=== PATIENT | male | born 1955 | race African-American/Black ===

== ENCOUNTER 2017-12-27 15:27 | Observation (INO) | payer OTHER ==
[~2017-12-27] VITALS: Ht 182.9 cm; Wt 80.0 kg
[~2017-12-27 15:27] MED LIST: AMOX500T PO; AUGM875T PO; LISI-363 PO; LORTA5 PO; NORV5TAB PO; PROT40TA PO; TRAM100T19 PO
[2017-12-27 15:33] VITALS: BP 145/85; PULSE 111; RESP 15; TEMP 97.7; O2SAT 97
[2017-12-27] MEDS ORDERED: LISI-519 PO (15:44)
[2017-12-27] MEDS ORDERED: SODIUM CHLORIDE 0.9% FLUSH 10 ML FLUSH IVF PRN (15:45)
[2017-12-27] MEDS ORDERED: SODIUM CHLORID 0.9% 500 ML INJ 500 ML IV ONE (15:45)
[2017-12-27] MEDS ORDERED: ALBU6.7H INH (15:48)
[2017-12-27] MEDS ORDERED: AMLO5TAB2 PO (15:48)
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
--- NOTE | 2017-12-27 16:13 | RADRPT ---
EXAM DATE/TIME: 12/27/2017 15:49 [place] COMPARISON: No previous studies available for comparison. INDICATIONS : Chest pain MEDICAL HISTORY : Hypertension. SURGICAL HISTORY : None. ENCOUNTER: Initial ACUITY: 1 day PAIN SCORE: 0/10 LOCATION: chest FINDINGS: PA and lateral views of the chest demonstrate the lungs to be symmetrically aerated without evidence of mass, infiltrate or effusion. The cardiomediastinal contours are unremarkable. Osseous structure s are intact. CONCLUSION: 1. No acute cardiopulmonary findings. Floyd Abel MD on December 27, 2017 at 16:10 Board Certified Radiologist. This report was verified electronically.
[2017-12-27 16:42] LABS: BASOPHIL # 0.1 TH/MM3 (0-0.2); BASOPHIL % 0.3 % (0.0-2.0); EOSINOPHIL # 0.1 TH/MM3 (0-0.4); EOSINOPHIL % 0.5 % (0.0-4.0); HEMATOCRIT 46.2 % (39.0-51.0); HEMOGLOBIN 15.4 GM/DL (13.0-17.0); LYMPHOCYTE # 7.5 TH/MM3 (1.0-4.8); MEAN CELL VOLUME 101.6 FL (80.0-100.0); MEAN CORPUSCULAR HGB CONC 33.4 % (32.0-36.0); MEAN PLATELET VOLUME 7.4 FL (7.0-11.0); MONO % 6.8 % (0.0-8.0); MONOCYTE # 1.2 TH/MM3 (0-0.9); NEUT % 50.4 % (16.0-70.0); PLATELET COUNT 391 TH/MM3 (150-450); RED BLOOD COUNT 4.55 MIL/MM3 (4.50-5.90); RED CELL DISTRIBUTION WIDTH 14.6 % (11.6-17.2); WHITE BLOOD COUNT 17.9 TH/MM3 (4.0-11.0)
[2017-12-27 16:54] LABS: PROTHROMBIN TIME - PATIENT 10.3 SEC (9.8-11.6)
[2017-12-27 17:06] LABS: ALBUMIN 3.9 GM/DL (3.4-5.0); AST (GOT) 32 U/L (15-37); BICARBONATE 19.9 MEQ/L (21.0-32.0); BLOOD UREA NITROGEN 20 MG/DL (7-18); CALCIUM 9.5 MG/DL (8.5-10.1); CHLORIDE 99 MEQ/L (98-107); CREATININE 1.56 MG/DL (0.60-1.30); GLOMERULAR FILTRATION RATE 55 ML/MIN (>89); GLUCOSE,RANDOM 148 MG/DL (74-106); MAGNESIUM 2.2 MG/DL (1.5-2.5); SODIUM (NA) 134 MEQ/L (136-145)
[2017-12-27 17:07] LABS: ALT (GPT) 52 U/L (12-78)
[2017-12-27 17:10] LABS: ALKALINE PHOSPHATASE 78 U/L (45-117); TOTAL BILIRUBIN ADULT 0.4 MG/DL (0.2-1.0); TOTAL PROTEIN 7.6 GM/DL (6.4-8.2); TROPONIN I LESS THAN 0.02 NG/ML (0.02-0.05)
[2017-12-27] MEDS ORDERED: SODIUM CHLOR 0.9% 1000 ML INJ 1,000 ML IV ONE ×2 (18:15)
[2017-12-27] MEDS ORDERED: NALOXONE HCL 0.4 MG/ML AMP IV PUSH ONE (18:15)
[2017-12-27 18:21] VITALS: BP 115/75; PULSE 74; RESP 12; O2SAT 96
[2017-12-27 18:21] LABS: LYMPHOCYTES 45 % (9-44); MONOCYTES 4 % (0-8); NEUTROPHIL # MANUAL DIFF 9.1 TH/MM3 (1.8-7.7); POLYS (SEG NEUTROPHILS) 50 % (16-70); PROMYELOCYTES 1 % (0-0)
[2017-12-27 18:22] LABS: HOWELL-JOLLY BODIES PRESENT (NONE SEEN)
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
[2017-12-27] MEDS ORDERED: SODIUM CHLORIDE 0.9% FLUSH 10 ML FLUSH IV FLUSH PRN (18:30)
[2017-12-27] MEDS ORDERED: ACETAMINOPHEN 325 MG TAB PO PRN (18:30)
[2017-12-27] MEDS ORDERED: RESP: ALBUTEROL 2.5 MG/IPRATROPIUM 0.5 MG NEB (PRN) NEB (18:30)
[2017-12-27] MEDS ORDERED: MAGNESIUM HYDROXIDE SUSP 30 ML CUP PO PRN (18:30)
[2017-12-27] MEDS ORDERED: NALOXONE HCL 0.4 MG/ML AMP IV PUSH PRN ×2 (18:30)
[2017-12-27] MEDS ORDERED: ONDANSETRON HCL 4 MG/2 ML VIAL IVP PRN (18:30)
[2017-12-27 19:42] VITALS: BP 129/80; PULSE 82; RESP 17; O2SAT 100
[2017-12-27 20:00] VITALS: O2SAT 100
[2017-12-27 21:29] VITALS: BP 129/79; PULSE 77; RESP 16; O2SAT 99
[2017-12-27] MEDS: SODIUM CHLORIDE 0.9% FLUSH 10 ML FLUSH IV FLUSH SCH (22:44)
[2017-12-28] VITALS (9 sets, daily range): BP systolic 110–164; BP diastolic 68–103; PULSE 68–96; RESP 16–18; TEMP 97.7–98.8; O2SAT 95–98
[2017-12-28 07:29] LABS: AUTOMATED NEUTROPHIL # 9.8 TH/MM3 (1.8-7.7); BASOPHIL % 0.3 % (0.0-2.0); EOSINOPHIL # 0.2 TH/MM3 (0-0.4); EOSINOPHIL % 1.2 % (0.0-4.0); HEMATOCRIT 40.4 % (39.0-51.0); HEMOGLOBIN 13.9 GM/DL (13.0-17.0); LYMPH % 28.7 % (9.0-44.0); LYMPHOCYTE # 4.5 TH/MM3 (1.0-4.8); MEAN CELL VOLUME 101.1 FL (80.0-100.0); MEAN CORPUSCULAR HEMOGLOBIN 34.8 PG (27.0-34.0); MEAN CORPUSCULAR HGB CONC 34.4 % (32.0-36.0); MEAN PLATELET VOLUME 7.2 FL (7.0-11.0); MONO % 6.9 % (0.0-8.0); MONOCYTE # 1.1 TH/MM3 (0-0.9); NEUT % 62.9 % (16.0-70.0); PLATELET COUNT 348 TH/MM3 (150-450); RED CELL DISTRIBUTION WIDTH 14.5 % (11.6-17.2); WHITE BLOOD COUNT 15.6 TH/MM3 (4.0-11.0)
[2017-12-28 08:16] LABS: BICARBONATE 30.4 MEQ/L (21.0-32.0); CREATININE 1.06 MG/DL (0.60-1.30)
[2017-12-28] MEDS: SODIUM CHLORIDE 0.9% FLUSH 10 ML FLUSH IV FLUSH SCH ×2 (09:06→21:00)
--- NOTE | 2017-12-28 10:25 | HHI.PR ---
Subjective Remarks Pt has NO new complaints. Pt is tolerating PO intake. Pt is requesting discharge to home. Objective Vitals Vital Signs Date Time Temp Pulse Resp B/P (MAP) Pulse Ox O2 Delivery O2 Flow Rate FiO2 12/28/17 09:10 68 18 129/73 (91) 97 Nasal Cannula 2.00 12/28/17 07:10 97.8 79 16 129/73 (91) 98 Nasal Cannula 2.00 12/28/17 07:10 79 18 98 Nasal Cannula 2.00 12/28/17 07:10 79 18 12/28/17 02:00 92 16 130/88 (102) 95 Nasal Cannula 2.00 12/28/17 01:00 72 16 129/78 (95) 98 Nasal Cannula 2.00 12/28/17 00:11 72 16 164/103 (123) 98 Room Air 12/27/17 21:29 77 16 129/79 (96) 99 Room Air 12/27/17 20:00 100 Nasal Cannula 2.00 12/27/17 19:42 82 17 129/80 (96) 100 Nasal Cannula 2.00 12/27/17 18:21 74 12 115/75 (88) 96 Nasal Cannula 3.00 12/27/17 15:33 97.7 111 15 145/85 (105) 97 12/28/17 12/28/17 12/29/17 15:00 23:00 07:00 Intake Total 300 ml Output Total 900 ml Balance -600 ml Intake Oral 300 ml Output Urine Total 900 ml # Voids 2 # Bowel Movements 0 Result Diagram: 12/28/17 0559 12/28/17 0559 Imaging Last Impressions Chest X-Ray 12/27/17 1539 Signed Impressions: Service Date/Time: Wednesday, December 27, 2017 15:49 - CONCLUSION: 1. No acute cardiopulmonary findings. Floyd Abel MD Objective Remarks GENERAL: This is a well-nourished, well-developed patient, in no apparent distress. CARDIOVASCULAR: Regular rate and rhythm without murmurs, gallops, or rubs. RESPIRATORY: Clear to auscultation. Breath sounds equal bilaterally. No wheezes , rales, or rhonchi. GASTROINTESTINAL: Abdomen soft, non-tender, nondistended. Normal active bowel sounds MUSCULOSKELETAL: Extremities without clubbing, cyanosis, or edema. NEURO: Alert & Oriented x4 to person, place, time, situation. Moves all ext x4 A/P Problem List: (1) Polysubstance abuse ICD Codes: F19.10 - Other psychoactive substance abuse, uncomplicated Status: Chronic Plan: - Pt brought to ER d/t drug overdose - Pt received IV narcan in the field with improvement. - In the field, there was c/o VT & pt received IV lidocaine bolus and then drip. ER physician disagreed and stopped IV lidocaine - Pt too lethargic for discharge to home. Observation admission requested by ER. - tele (12/28): NSR - Pt tolerating PO intake. - discharge to home - f/u with [facility] PCP in one week - f/u with [facility] in one week, RE: polysubstance abuse. (2) HTN (hypertension) ICD Codes: I10 - Essential (primary) hypertension Status: Chronic Plan: - hold home bp medications - keep bp log - f/u with PCP in one week to consider if pt needs to resume BP medications. Problem Qualifiers (1) HTN (hypertension): Qualified Codes: I10 - Essential (primary) hypertension Nolan Perez DO Dec 28, 2017 10:25
[2017-12-28] MEDS ORDERED: RESP: ALBUTEROL 2.5 MG/IPRATROPIUM 0.5 MG NEB (PRN) NEB (12:00)
[2017-12-28] MEDS: SODIUM CHLOR 0.9% 1000 ML INJ 1,000 ML IV SCH (12:11)
[2017-12-28] MEDS ORDERED: RESP: ALBUTEROL 2.5 MG/IPRATROPIUM 0.5 MG NEB (SCH) NEB ONE (13:00)
--- NOTE | 2017-12-28 19:13 | EKG ---
Date Performed: 12/28/2017 Time Performed: 08:31:42 PTAGE: 62 years EKG: Sinus rhythm NONSPECIFIC T-WAVE ABNORMALITY BORDERLINE ECG PREVIOUS TRACING : 12/27/2017 21.49 Since the previous tracing, no significant change noted DOCTOR: Devante Guevara Interpretating Date/Time 12/28/2017 19:12:24
--- NOTE | 2017-12-28 19:56 | EKG ---
Date Performed: 12/27/2017 Time Performed: 21:49:36 PTAGE: 62 years EKG: Sinus rhythm NORMAL ECG Since the PREVIOUS TRACING , no significant change noted DOCTOR: Devante Guevara Interpretating Date/Time 12/28/2017 19:54:19
--- NOTE | 2017-12-28 20:16 | EKG ---
Date Performed: 12/27/2017 Time Performed: 16:14:47 PTAGE: 62 years EKG: Sinus rhythm NORMAL ECG Since the PREVIOUS TRACING , a fib and RBBB no longer present DOCTOR: Devante Guevara Interpretating Date/Time 12/28/2017 20:15:18
--- NOTE | 2017-12-28 20:17 | EKG ---
Date Performed: 12/27/2017 Time Performed: 15:35:55 PTAGE: 62 years EKG: ATRIAL FIBRILLATION WITH RAPID VENTRICULAR RESPONSE MARKED LEFT AXIS DEVIATION RIGHT BUNDLE BRANCH BLOCK SEPTAL MYOCARDIAL INFARCTION ABNORMAL ECG NO PREVIOUS TRACING DOCTOR: Devante Guevara Interpretating Date/Time 12/28/2017 20:17:30
[2017-12-29 00:10] VITALS: BP 111/72; PULSE 83; RESP 18; TEMP 99; O2SAT 94
[2017-12-29 03:42] VITALS: BP 124/79; PULSE 78; RESP 18; TEMP 98.3; O2SAT 94
[2017-12-29] MEDS: SODIUM CHLOR 0.9% 1000 ML INJ 1,000 ML IV SCH (05:56)
[2017-12-29 07:40] VITALS: PULSE 70
[2017-12-29 08:18] VITALS: BP 130/74; PULSE 66; RESP 18; TEMP 98; O2SAT 96
[2017-12-29] MEDS: SODIUM CHLORIDE 0.9% FLUSH 10 ML FLUSH IV FLUSH SCH (09:00)
--- NOTE | 2017-12-29 11:30 | HHI.PR ---
Subjective Remarks Patient more awake and alert today wants to be DC home Objective Vitals Vital Signs Date Time Temp Pulse Resp B/P (MAP) Pulse Ox O2 Delivery O2 Flow Rate FiO2 12/29/17 08:18 98.0 66 18 130/74 (92) 96 12/29/17 07:40 70 12/29/17 03:42 98.3 78 18 124/79 (94) 94 12/29/17 00:10 99.0 83 18 111/72 (85) 94 12/28/17 19:41 98.8 83 18 110/70 (83) 95 12/28/17 15:26 86 12/28/17 13:37 98.6 96 18 121/68 (85) 98 12/28/17 12:57 12/28/17 11:48 97.7 86 17 134/81 (98) 98 Nasal Cannula 2.00 Result Diagram: 12/28/17 0559 12/28/17 0559 Other Results Laboratory Tests Test 12/27/17 15:47 12/27/17 20:30 12/28/17 05:59 White Blood Count 17.9 TH/MM3 15.6 TH/MM3 Red Blood Count 4.55 MIL/MM3 4.00 MIL/MM3 Hemoglobin 15.4 GM/DL 13.9 GM/DL Hematocrit 46.2 % 40.4 % Mean Corpuscular Volume 101.6 FL 101.1 FL Mean Corpuscular Hemoglobin 34.0 PG 34.8 PG Mean Corpuscular Hemoglobin Concent 33.4 % 34.4 % Red Cell Distribution Width 14.6 % 14.5 % Platelet Count 391 TH/MM3 348 TH/MM3 Mean Platelet Volume 7.4 FL 7.2 FL Neutrophils (%) (Auto) 50.4 % 62.9 % Lymphocytes (%) (Auto) 42.0 % 28.7 % Monocytes (%) (Auto) 6.8 % 6.9 % Eosinophils (%) (Auto) 0.5 % 1.2 % Basophils (%) (Auto) 0.3 % 0.3 % Neutrophils # (Auto) 9.0 TH/MM3 9.8 TH/MM3 Lymphocytes # (Auto) 7.5 TH/MM3 4.5 TH/MM3 Monocytes # (Auto) 1.2 TH/MM3 1.1 TH/MM3 Eosinophils # (Auto) 0.1 TH/MM3 0.2 TH/MM3 Basophils # (Auto) 0.1 TH/MM3 0.0 TH/MM3 CBC Comment AUTO DIFF DIFF FINAL Differential Total Cells Counted 100 Neutrophils % (Manual) 50 % Lymphocytes % 45 % Monocytes % 4 % Neutrophils # (Manual) 9.1 TH/MM3 Promyelocytes 1 % Differential Comment FINAL DIFF MANUAL Atypical Lymphocytes % Platelet Estimate NORMAL Platelet Morphology Comment NORMAL Basophilic Stippling FAINT [place] Bodies PRESENT Prothrombin Time 10.3 SEC Prothromb Time International Ratio 1.0 RATIO Activated Partial Thromboplast Time 25.0 SEC Blood Urea Nitrogen 20 MG/DL 16 MG/DL Creatinine 1.56 MG/DL 1.06 MG/DL Random Glucose 148 MG/DL 92 MG/DL Total Protein 7.6 GM/DL Albumin 3.9 GM/DL Calcium Level 9.5 MG/DL 9.0 MG/DL Magnesium Level 2.2 MG/DL Alkaline Phosphatase 78 U/L Aspartate Amino Transf (AST/SGOT) 32 U/L Alanine Aminotransferase (ALT/SGPT) 52 U/L Total Bilirubin 0.4 MG/DL Sodium Level 134 MEQ/L 140 MEQ/L Potassium Level 3.4 MEQ/L 4.3 MEQ/L Chloride Level 99 MEQ/L 105 MEQ/L Carbon Dioxide Level 19.9 MEQ/L 30.4 MEQ/L Anion Gap 15 MEQ/L 5 MEQ/L Estimat Glomerular Filtration Rate 55 ML/MIN 86 ML/MIN Total Creatine Kinase 259 U/L Creatine Kinase MB 3.7 NG/ML Troponin I LESS THAN 0.02 NG/ML Ethyl Alcohol Level 48 MG/DL Urine Opiates Screen POS Urine Barbiturates Screen NEG Urine Amphetamines Screen NEG Urine Benzodiazepines Screen NEG Urine Cocaine Screen POS Urine Cannabinoids Screen NEG Imaging Last Impressions Chest X-Ray 12/27/17 1539 Signed Impressions: Service Date/Time: Wednesday, December 27, 2017 15:49 - CONCLUSION: 1. No acute cardiopulmonary findings. Floyd Abel MD Objective Remarks GENERAL: This is a well-nourished, well-developed patient, in no apparent distress. CARDIOVASCULAR: Regular rate and rhythm without murmurs, gallops, or rubs. RESPIRATORY: Clear to auscultation. Breath sounds equal bilaterally. No wheezes , rales, or rhonchi. GASTROINTESTINAL: Abdomen soft, non-tender, nondistended. Normal active bowel sounds MUSCULOSKELETAL: Extremities without clubbing, cyanosis, or edema. NEURO: Alert & Oriented x4 to person, place, time, situation. Moves all ext x4 A/P Problem List: (1) Polysubstance abuse ICD Codes: F19.10 - Other psychoactive substance abuse, uncomplicated Status: Chronic Plan: - Pt brought to ER d/t drug overdose - Pt received IV narcan in the field with improvement. - In the field, there was c/o VT & pt received IV lidocaine bolus and then drip. ER physician disagreed and stopped IV lidocaine - Pt too lethargic for discharge to home 12/28. Observation admission requested by ER. - tele: NSR - Pt tolerating PO intake. - discharge to home - f/u with [facility] PCP in one week - f/u with [facility] in one week, RE: polysubstance abuse. - [facility] case management notified regarding patient's polysubstance abuse for assist with outpatient follow up - patient given numbers for NA - 12/29 DC patient home on a regular diet with follow up instructions. Patient encouraged to abstain from illicit drugs. Patient reports at home he was taking lisinopril and amlodipine BP here has not been elevated. Both lisinopril and amlodipine held, patient to follow up with PCP regarding polysubstance abuse and BP management. (2) HTN (hypertension) ICD Codes: I10 - Essential (primary) hypertension Status: Chronic Plan: - hold home bp medications - keep bp log - f/u with PCP in one week to consider if pt needs to resume BP medications. Assessment and Plan Patient examined. Assessment and plan formulated with Santa Perla PA-C. I agree with the above. Pt has NO new medical complaints. Pt is ambulating without difficulties. Pt warned that further use of street drug may be fatal and from EMS reported as explained by ER physician, pt might have on this occasion if he had not received narcan. Pt provided information on community support programs and NA. Pt recommended to f/u with PCP and [facility]. Problem Qualifiers (1) HTN (hypertension): Qualified Codes: I10 - Essential (primary) hypertension Santa Perla Dec 29, 2017 11:30 Nolan Perez DO Dec 29, 2017 12:42
--- NOTE | 2017-12-29 12:43 | HHI.DCPOC ---
Discharge Care Plan Diagnosis: (1) Hypoxia (2) HTN (hypertension) (3) Opiate overdose (4) Polysubstance abuse Goals to Promote Your Health * To prevent worsening of your condition and complications * To maintain your health at the optimal level Directions to Meet Your Goals Take your medications as prescribed Follow your dietary instruction Follow activity as directed Keep your appointments as scheduled Take your immunizations and boosters as scheduled If your symptoms worsen call your PCP, if no PCP go to Urgent Care Center or Emergency Room Smoking is Dangerous to Your Health. Avoid second hand smoke Call the 24-hour hour crisis hotline for domestic abuse at Nolan Perez DO Dec 29, 2017 12:43
== END 2017-12-29 14:28 | disposition home or self-care (01) ==
LOC: NEPC 15:27 → NEDA 18:50 → NEDH 23:23 → NEPGCP 12-28 13:10
PROVIDERS: ADMIT Hospitalist; ATTEND Hospitalist
DX: T40.601A Poisoning by unspecified narcotics, accidental (unintentional), initial encounter (principal); R53.83 Other fatigue; I10 Essential (primary) hypertension; R09.02 Hypoxemia; I48.91 Unspecified atrial fibrillation; I45.10 Unspecified right bundle-branch block; R94.31 Abnormal electrocardiogram [ECG] [EKG]; R00.0 Tachycardia, unspecified; F17.200 Nicotine dependence, unspecified, uncomplicated; Z79.899 Other long term (current) drug therapy
CPT/HCPCS: 71046; 80048; 80053; 80307; 82550; 82552; 83735; 84484; 85007; 85025; 85027; 85610; 85730; 93005; 94640; 94664; 96360; 96361; 97161; 99285; G0378; J2310; J7030; J7040

== ENCOUNTER 2018-02-08 08:39 | Emergency (ER) | payer SELFPAY ==
[~2018-02-08] VITALS: Ht 182.9 cm; Wt 72.5 kg
[~2018-02-08 08:39] MED LIST changes: +ALBU6.7H INH
[2018-02-08 08:50] VITALS: BP 171/76; PULSE 90; RESP 16; TEMP 98.9; O2SAT 97
[2018-02-08] MEDS ORDERED: ASPIRIN 325 MG TAB PO ONE (09:00)
[2018-02-08] MEDS ORDERED: NITROGLYCERIN 0.4 MG SL 25 TABS/BTL SL ONE (09:00)
[2018-02-08] MEDS ORDERED: SODIUM CHLORIDE 0.9% FLUSH 10 ML FLUSH IVF PRN (09:00)
[2018-02-08 09:02] VITALS: BP_SYST 128; BP_SYST 138; BP_DIAS 86; BP_DIAS 88; PULSE 84; RESP 18; O2SAT 96
[2018-02-08 09:04] VITALS: BP 138/88; PULSE 78; PULSE 79; RESP 18; O2SAT 97
[2018-02-08] MEDS ORDERED: LISI-515 PO (09:08)
[2018-02-08] MEDS ORDERED: HUMIBIDDM PO (09:08)
[2018-02-08] MEDS ORDERED: AMLO5TAB2 PO (09:08)
[2018-02-08] MEDS ORDERED: RESP: ALBUTEROL 2.5 MG/IPRATROPIUM 0.5 MG NEB (SCH) NEB ONE ×2 (09:15→11:00)
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
--- NOTE | 2018-02-08 09:50 | RADRPT ---
EXAM DATE/TIME: 02/08/2018 09:31 [facility] COMPARISON: CHEST PA & LAT, December 27, 2017, 15:49. INDICATIONS : Chest pain. MEDICAL HISTORY : Hypertension. SURGICAL HISTORY : None. ENCOUNTER: Initial ACUITY: 4 - 6 days PAIN SCORE: 8/10 LOCATION: Bilateral chest FINDINGS: Single AP view of the chest. Patchy linear opacity at the left lung base likely representing atelecta sis. Lungs otherwise clear. Cardiomediastinal silhouette within normal limits. No evidence of pleural effusion or pneumothorax. CONCLUSION: Mild opacity at the left lung base likely representing atelectasis. No other acute cardiopulmonary di sease identified. Dash Garcia MD on February 08, 2018 at 9:47 Board Certified Radiologist. This report was verified electronically.
[2018-02-08 09:52] LABS: AUTOMATED NEUTROPHIL # 11.2 TH/MM3 (1.8-7.7); BASOPHIL # 0.1 TH/MM3 (0-0.2); BASOPHIL % 0.6 % (0.0-2.0); EOSINOPHIL # 0.2 TH/MM3 (0-0.4); EOSINOPHIL % 1.2 % (0.0-4.0); HEMATOCRIT 43.4 % (39.0-51.0); HEMOGLOBIN 14.6 GM/DL (13.0-17.0); LYMPH % 32.8 % (9.0-44.0); LYMPHOCYTE # 6.4 TH/MM3 (1.0-4.8); MEAN CELL VOLUME 98.2 FL (80.0-100.0); MEAN CORPUSCULAR HEMOGLOBIN 33.1 PG (27.0-34.0); MEAN CORPUSCULAR HGB CONC 33.7 % (32.0-36.0); MEAN PLATELET VOLUME 7.9 FL (7.0-11.0); MONO % 7.8 % (0.0-8.0); MONOCYTE # 1.5 TH/MM3 (0-0.9); NEUT % 57.6 % (16.0-70.0); PLATELET COUNT 424 TH/MM3 (150-450); RED BLOOD COUNT 4.42 MIL/MM3 (4.50-5.90); RED CELL DISTRIBUTION WIDTH 13.4 % (11.6-17.2); WHITE BLOOD COUNT 19.5 TH/MM3 (4.0-11.0)
[2018-02-08 09:56] LABS: PROTHROMBIN TIME - PATIENT 10.6 SEC (9.8-11.6)
[2018-02-08 10:15] LABS: ALKALINE PHOSPHATASE 96 U/L (45-117); BLOOD UREA NITROGEN 16 MG/DL (7-18); TOTAL BILIRUBIN ADULT 0.6 MG/DL (0.2-1.0); TOTAL PROTEIN 7.8 GM/DL (6.4-8.2); TROPONIN I LESS THAN 0.02 NG/ML (0.02-0.05)
[2018-02-08] MEDS ORDERED: cefTRIAXone INJ 1,000 MG in SODIUM CHLORIDE 0.9% INJ 100 ML IV ONE (10:15)
[2018-02-08] MEDS ORDERED: AZITHROMYCIN INJ 500 MG in SODIUM CHLOR 0.9% 250 ML INJ 250 ML IV ONE (10:15)
[2018-02-08 10:18] LABS: ALBUMIN 3.4 GM/DL (3.4-5.0); ALT (GPT) 44 U/L (12-78); AST (GOT) 24 U/L (15-37); BICARBONATE 23.3 MEQ/L (21.0-32.0); CALCIUM 9.1 MG/DL (8.5-10.1); CHLORIDE 103 MEQ/L (98-107); CREATININE 1.02 MG/DL (0.60-1.30); GLOMERULAR FILTRATION RATE 90 ML/MIN (>89); GLUCOSE,RANDOM 98 MG/DL (74-106); MAGNESIUM 1.9 MG/DL (1.5-2.5); SODIUM (NA) 136 MEQ/L (136-145)
[2018-02-08 10:31] LABS: BASOPHILS 1 % (0-2); LYMPHOCYTES 41 % (9-44); MONOCYTES 7 % (0-8); NEUTROPHIL # MANUAL DIFF 9.8 TH/MM3 (1.8-7.7); POLYS (SEG NEUTROPHILS) 50 % (16-70)
[2018-02-08] MEDS ORDERED: methylPREDNISolone SOD SUCC 125 MG/2 ML VIAL IV PUSH ONE (11:00)
[2018-02-08 11:02] VITALS: BP 128/81; PULSE 79; RESP 15; O2SAT 94
[2018-02-08 13:16] LABS: TROPONIN I LESS THAN 0.02 NG/ML (0.02-0.05)
[2018-02-08 13:59] VITALS: BP 132/82; PULSE 79; RESP 18; O2SAT 94
[2018-02-08] MEDS ORDERED: ALBUAER3 INH (14:31)
[2018-02-08] MEDS ORDERED: PRED50 PO (14:31)
[2018-02-08] MEDS ORDERED: CEPH-460 PO (14:31)
[2018-02-08] MEDS ORDERED: AZIT250T3 PO (14:31)
[2018-02-08 14:47] VITALS: BP 122/90
--- NOTE | 2018-02-09 09:39 | EKG ---
Date Performed: 02/08/2018 Time Performed: 13:17:02 PTAGE: 62 years EKG: Sinus rhythm NORMAL ECG PREVIOUS TRACING : 12/28/2017 08.31 DOCTOR: Urban Arciniega Interpretating Date/Time 02/09/2018 09:38:26
== END 2018-02-08 14:48 | disposition home or self-care (01) ==
LOC: NEPE 08:39
DX: J44.1 Chronic obstructive pulmonary disease with (acute) exacerbation (principal); J44.0 Chronic obstructive pulmonary disease with (acute) lower respiratory infection; J18.9 Pneumonia, unspecified organism; I10 Essential (primary) hypertension; Z72.0 Tobacco use; Z79.899 Other long term (current) drug therapy
CPT/HCPCS: 71045; 80053; 80307; 82550; 82552; 83735; 83880; 84484; 85007; 85027; 85610; 85730; 87804; 93005; 94640; 94664; 96365; 96368; 96375; 99285; J0456; J0696; J2930; J7050